=== PATIENT | male | born 1995 | race Two or more races ===

== ENCOUNTER → 2025-01-25 | Day surgery (SDC) | payer MEDICAID ==
[2025-01-21 14:27] LABS: INR 1.03 (0.9-1.15); Partial Thromboplastin Time 27.9 SEC (24.5-34.5); Prothrombin Time 10.9 sec (9.3-11.8)
[2025-01-21 14:29] LABS: Hematocrit 46.4 % (41.0-53.0); Hemoglobin 16.1 g/dL (13.5-17.5); Mean Corpuscular Hemoglobin 30.1 pg (28.0-32.0); Mean Corpuscular Volume 86.6 fL (80.0-100.0); Nucleated Red Blood Cells % 0.2 %
[2025-01-21 14:51] LABS: Alanine Aminotransferase 33 U/L (7-40); Albumin 4.7 g/dL (3.2-4.8); Alkaline Phosphatase 70 U/L (46-116); Anion Gap 9 (5-15); BUN/Creatinine Ratio 10.0 (10.0-20.0); Bilirubin, Total 0.7 mg/dL (0.2-1.0); Blood Urea Nitrogen 12 mg/dL (9-23); Calcium 10.3 mg/dL (8.7-10.4); Carbon Dioxide 28 mmol/L (20-31); Chloride 104 mmol/L (98-107); Glucose 100 mg/dL (74-106); Potassium 4.2 mmol/L (3.5-5.1); Sodium 141 mmol/L (136-145); Total Protein 7.1 g/dL (5.7-8.2)
[~2025-01-25] VITALS: Ht 177.8 cm; Wt 83.9 kg
[~2025-01-25] MED LIST: CREAPOW7 XX; FAMO20TA10 PO; FIBECAP2 OR; OMEG306C OR; OMEP20TA PO; WOUNGEL61 EX
[2025-01-25] MEDS: MIDAZOLAM HCL 2MG/2ML 2ml VIAL (1mg/ml) ONE (11:29)
[2025-01-25] MEDS: fentaNYL CITRATE 100 MCG/2 ML VL ONE (11:29)
--- NOTE | 2025-01-25 11:40 | DVHNC2 ---
Procedure - PROCEDURE DATE: JANUARY 25, 2025 PERFORMED BY: DR. ROMERO REFERRING PROVIDER:DOES NOT RECALL PROCEDURE PERFORMED: 1.EGD WITH MODERATE SEDATION PREPROCEDURE DIAGNOSIS: 1.GERD REFRACTORY TO [place] POSTPROCEDURE DIAGNOSIS: 1. MILD GASTRITIS 2. MILD ESOPHAGITIS MEDICATIONS USED: 5MG OF VERSED AND 100 MCG OF FENTANYL IV INDICATIONS FOR PROCEDURE: THE PATIENT IS A 29-YEAR-OLD MALE PRESENTS FOR OUTPATIENT EGD FOR REFRACTORY GERD DETAILS OF THE PROCEDURE: INFORMED CONSENT WAS OBTAINED AFTER RISKS BENEFITS AND ALTERNATIVES WERE DISCUSSED AT LENGTH WITH THE PATIENT. THE PATIENT GAVE CONSENT TO THE PROCEDURES WELL A MEDICATION USED FOR SEDATION. THE PATIENT WAS PLACED IN THE LEFT LATERAL DECUBITUS POSITION. AN OLYMPUS ENDOSCOPE WAS INSERTED INTO THE OROPHARYNX AND ADVANCED TO THE DUODENUM. THE SCOPE WAS THEN WITHDRAWN. THE THE DUODENUM WAS NORMAL, THE STOMACH SHOWED MILD GASTRITIS AND BIOPSIES WERE TAKEN. THE ESOPHAGUS SHOWED MILD ESOPHAGITIS, THE ZLINE WAS AT 42 CM. THE SCOPE WAS THEN WITHDRAWN. MID ESOPHAGEAL BIOSPIES WERE TAKEN TO RULE OUT EOE. THE PATIENT TOLERATED THE PROCEDURE WELL. IMPRESSION: 1. ESOPHAGITIS AND GASTRITIS, BOTH MILD RECOMMENDATIONS: 1. FOLLOW UP WITH PRIMARY CARE PHYSICIAN 2. CONTINUE WITH MEDICATIONS PPI 20 MIN BEFORE MEALS DAILY AND H2 EVER 3.ANTIREFLUX PRECAUTIONS 4.FOLLOW UP IN [facility] CLIN[facility] DENAE ROMERO MD Jan 25, 2025 11:40
[2025-01-25 12:25] VITALS: BP 123/82; PULSE 66; RESP 12; O2SAT 100
== END | disposition home or self-care (01) ==
LOC: GI 09:28
PROVIDERS: ATTEND Specialist
DX: K21.00 Gastro-esophageal reflux disease with esophagitis, without bleeding (principal); K29.50 Unspecified chronic gastritis without bleeding; K31.89 Other diseases of stomach and duodenum; J45.909 Unspecified asthma, uncomplicated; Z79.899 Other long term (current) drug therapy; Z98.890 Other specified postprocedural states; Z88.8 Allergy status to other drugs, medicaments and biological substances
CPT/HCPCS: 36415; 43239; 80053; 85025; 85610; 85730; 88305; 88312; 88342; J2250; J3010; 99152